=== PATIENT | male | born 1975 | race Caucasian/White ===

== ENCOUNTER 2018-03-30 09:41 | Emergency (ER) | payer SELFPAY ==
[2018-03-30 09:56] VITALS: BP 131/86
--- NOTE | 2018-03-30 10:16 | Emergency Department Report ---
ED General Adult HPI - General Chief complaint: Nausea/Vomiting/Diarrhea Stated complaint: DEHYDRATION/VOMIT Time Seen by Provider: 03/30/18 10:07 Source: patient Mode of arrival: Ambulatory Limitations: No Limitations - History of Present Illness Initial comments: Mr. Amaya is a pleasant 42-year-old -[place] male who comes to the ER today with vomiting this morning. He states that he overindulged in alcohol yesterday and woke up feeling bad. Upon further probing with he and his it sounds like he is drinking every other day to avoid some stressors. He did not specify what stressors were. He had a long conversation about alcoholism and dealing with the stress in a different way. Patient was very forthcoming with his challenges and declined further medical workup. - Related Data Allergies Allergy/AdvReac Type Severity Reaction Status Date / Time No Known Allergies Allergy Unverified 03/30/18 09:42 ED Review of Systems ROS: Stated complaint: DEHYDRATION/VOMIT Other details as noted in HPI Comment: All other systems reviewed and negative Constitutional: denies: chills ENT: denies: as per HPI Respiratory: denies: cough Cardiovascular: denies: dyspnea on exertion Endocrine: denies: intolerance to cold Gastrointestinal: as per HPI, nausea, vomiting Genitourinary: denies: dysuria Skin: denies: as per HPI, lesions Neurological: denies: weakness Psychiatric: denies: anxiety Hematological/Lymphatic: denies: as per HPI ED Past Medical Hx - Past Medical History Previous Medical History?: No - Surgical History Hx Appendectomy: Yes Additional Surgical History: TESTICLES - Family History Family history: no significant - Social History Smoking Status: Current Every Day Smoker Substance Use Type: Alcohol ED Physical Exam - General Limitations: No Limitations General appearance: alert - Head Head exam: Present: atraumatic - Eye Eye exam: Present: normal appearance Pupils: Present: normal accommodation - ENT ENT exam: Present: normal exam - Neck Neck exam: Present: normal inspection - Respiratory Respiratory exam: Present: normal lung sounds bilaterally - Cardiovascular Cardiovascular Exam: Present: regular rate - GI/Abdominal GI/Abdominal exam: Present: soft, normal bowel sounds. Absent: tenderness - Rectal Rectal exam: Present: deferred - Neurological Exam Neurological exam: Present: alert, altered, CN II-XII intact, normal gait - Psychiatric Psychiatric exam: Present: normal affect, normal mood ED Course Vital Signs 03/30/18 09:53 Temperature 97.7 F Pulse Rate 98 H Respiratory 18 Rate Blood Pressure 131/86 O2 Sat by Pulse 97 Oximetry ED Medical Decision Making - Medical Decision Making long discussion with pt about stress/etoh Dc home with plan of care vss no n/v abd snt Critical care attestation.: If time is entered above; I have spent that time in minutes in the direct care of this critically ill patient, excluding procedure time. ED Disposition Clinical Impression: Nausea, Alcohol use Disposition: DC-01 TO HOME OR SELFCARE Is pt being admited?: No Does the pt Need Aspirin: No Condition: Stable Forms: Work/School Release Form(ED) Time of Disposition: 10:16
== END 2018-03-30 10:20 | disposition home or self-care (01) ==
LOC: ED 09:41
DX: R11.2 Nausea with vomiting, unspecified (principal); Z90.49 Acquired absence of other specified parts of digestive tract; F17.200 Nicotine dependence, unspecified, uncomplicated
CPT/HCPCS: 99281